=== PATIENT | male | born 1950 | race Caucasian/White ===

== ENCOUNTER → 2017-09-07 | Day surgery (SDC) | payer MEDICARE, OTHER ==
[~2017-09-07] MED LIST: LIDOCAINE 1% PF 2 ML VIAL. ID; LIDOCAINE 2% 100 MG/5 ML SYRINGE.; MIDAZOLAM HCL/PF 2 MG/2 ML VIAL. IV; PROPOFOL 20 ML IV; fentaNYL PF VIAL 100 MCG/2 ML VIAL IV
[2017-09-07] MEDS: IV RINGERS,LACTATED 1000ML 1,000 ML IV (07:30)
== END | disposition home or self-care (01) ==
LOC: ENDOS 07:04
DX: Z12.11 Encounter for screening for malignant neoplasm of colon (principal); K64.0 First degree hemorrhoids; I10 Essential (primary) hypertension; E78.5 Hyperlipidemia, unspecified; Z85.820 Personal history of malignant melanoma of skin; M19.90 Unspecified osteoarthritis, unspecified site; Z98.890 Other specified postprocedural states; Z82.49 Family history of ischemic heart disease and other diseases of the circulatory system
CPT/HCPCS: G0121; J2704